=== PATIENT | female | born 1960 | race Caucasian/White ===

== ENCOUNTER 2024-12-15 09:03 | Emergency (ER) | payer OTHER, SELFPAY ==
[2024-12-15 09:10] VITALS: BP 192/88; PULSE 81; RESP 16; TEMP 36.6; O2SAT 99
--- OUTSIDE RECORDS SUMMARY | 2024-12-15 09:25 | XMS_ITS | Clinical Summary ---
Author Organization [facility] Address [address] [place] [address] Phone Care Team Providers Care Cotton Farmer Name Role Phone Antonette Saunders ADIA Primary Care Provider + Allergies Active Allergy Reactions Criticality Noted Date Comments Lisinopril Other (see Comments) Low 11/26/2016 Medications famotidine (PEPCID) 20 MG Tablet Take 1 Tablet by mouth 2 times daily. 60 Tablet 3 3 Active hydrOXYzine (ATARAX) 25 MG Tablet TAKE 1 TABLET BY MOUTH EVERY NIGHT NEEDED FOR ANXIETY OR SLEEP 90 Tablet 4 Active atorvastatin (LIPITOR) 20 MG TabletIndications :Atherosclerosis TAKE 1 TABLET BY MOUTH EVERY DAY 90 Tablet 4 Active cloNIDine (CATAPRES) 0.1 MG TabletIndications :Essential hypertension Take 1 Tablet by mouth 2 times daily as needed (take if blood pressure above 160/100). 30 Tablet 4 Active clopidogrel (PLAVIX) 75 MG Tablet Take 1 Tablet by mouth daily. 90 Tablet 3 4 Active losartan (COZAAR) 50 MG TabletIndications :Essential hypertension TAKE 1 TABLET BY MOUTH TWICE A DAY 180 Tablet 1 4 Active amLODIPine (NORVASC) 5 MG TabletIndications :Essential hypertension TAKE 1 TABLET BY MOUTH EVERY DAY 90 Tablet 4 Active Albuterol-Budeson nicole (Airsupra) 90-80 MCG/ACT AerosolIndication s:Asthma,Bronchos pasm take 2 Puffs by inhalation every 4 hours as needed (shortness of breath, wheezing, or cough, max 12 puffs in 24 hour period). Indications: Asthma, Spasm of Lung Air Passages 32.1 g 4 Active methocarbamol (ROBAXIN) 750 MG Tablet Take 1 Tablet by mouth 3 times daily as needed (upper back pain). 30 Tablet 1 4 Active Active Problems Problem Noted Date Diagnosed Date Anxiety 09/02/2022 Carotid stenosis, asymptomatic, bilateral 2022 Alcohol abuse 09/02/2022 Suppurative hidradenitis 09/02/2022 COPD (chronic obstructive pulmonary disease) Hypertension 09/02/2022 Cervical ca 09/02/2022 Cancer Staging:Clinical: Unsigned Prediabetes 07/24/2021 Atherosclerosis 07/24/2021 Hypertension 07/24/2021 Chronic right shoulder pain 11/22/2016 PVD (peripheral vascular disease) 05/24/2016 Pancreatitis, recurrent Eczema Resolved Problems Problem Noted Date Diagnosed Date Resolved Date Seizures 02/09/2018 Family History Medical History Relation Name Comments Ovarian Cancer Maternal Aunt Diabetes Mother Heart Disease Mother Hypertension Mother Relation Name Status Comments Maternal Aunt Mother Social History Tobacco Use Types Packs/Day Years Used Date Smoking Tobacco: Former Cigarettes 1 42.3 1 974 - 09/14/2015 Smokeless Tobacco: Never Tobacco Cessation:Counseling Given: Not Answered Alcohol Use Standard Drinks/Week Comments Yes 4 (1 standard drink = 0.6 oz pur e alcohol) PHQ-2 Answer Date Recorded Total Score - Questions 1-9 0 0 05/2021 Education Answer Date Recorded What is the highest level of school you have completed or the highest degree you have received? Some college, no degree 09/11/2022 Comments No Sex and Gender Information Value Date Recorded Sex Assigned at Not on file Legal Sex Female 8:08 PM CDT Gender Identity Not on file Sexual Orientation Not on file Last Filed Vital Signs Vital Sign Reading Time Taken Comments Blood Pressure 118/62 02/08/2024 3:17 AM CDT Pulse 94 02/08/2024 3:17 AM CDT Temperature 36.8 C (98.2 F) 02/07/2024 10:14 PM CDT Respiratory Rate 18 02/08/2024 3:17 AM CDT Oxygen Saturation 95% 02/08/2024 3:17 AM CDT Inhaled Oxygen Concentration - - Weight 59.9 kg (132 lb) 02/07/2024 10:14 PM CDT Height 162.6 cm (5' 4) 02/07/2024 10:14 PM CDT Body Mass Index 22.66 02/07/2024 10:14 PM CDT Plan of Treatment Health Maintenance Due Date Last Done Comments Hepatitis C Virus (HCV) Screening 1961 TdaP Immunization 1961 SARS-COV-2 Immunization (#1) 1966 Pneumococcal Immunization (5 0+ years) (1 of 2 - PCV) 02/14/1980 Zoster Immunization (1 of 2) 02/14/1980 Pap Smear 1982 Cervical Cancer Screening (CCS) 1991 HPV/Cotest 1991 Cologuard 2006 Colonoscopy 2006 Colorectal Cancer Screening 2006 Immunochemical Fecal Occult Blood 2006 Respiratory Syncytial Virus (RSV) Immunization (Adult) (1 - Risk 60-74 years 1-dose series) 2021 Mammogram 09/28/2022 09/28/2021, 05/17/2016 Lung Cancer Screening 09/05/2023 09/04/2022 , 09/28/2021, 11/07/2016 Influenza Immunization (#1) 2025 Hepatitis B Immunization Aged Out No longer eligible based on patient's age to complete this topic Human Papillomavirus (HPV) Immunization Aged Out No longer eligible b ased on patient's age to complete this topic Meningococcal Immunization (ACWY) Aged Out No longer eligible b ased on patient's age to complete this topic Rotavirus Immunization Aged Out No lo nger eligible based on patient's age to complete this topic Procedures Procedure Name Priority Date/Time Associated Diagnosis Comments CT CHEST W/O CONTRAST Stat with Interpretation 09/04/2022 10:03 AM CDT CLARI SCREENING BILATERAL DIGITAL W CAD W CHANDRAKANT Routine 09/28/2021 7:58 AM CDT Screening mammogram for breast cancer from Last 3 Months or Most Recently Relevant to Health Maintenance Results * CT CHEST W/O CONTRAST (09/04/2022 10:03 AM CDT) Anatomical Region Laterality Modality Chest N/A Computed Tomogra phy 09/04/2022 11:0 6 AM CDT Impressions 09/04/2022 11:09 AM CDT IMPRESSION: 1. Mild left basilar atelectasis with associated trace left effusion. 2. Significant coronary artery atherosclerosis. Narrative 09/04/2022 11:09 AM CDT EXAM DESCRIPTION: CT CHEST W/O CONTRAST REASON FOR STUDY: Chest pain and cough x2 days TECHNIQUE: CT scan of the chest performed without intravenous contrast using helical scanning technique. Reconstructed coronal and sagittal MPR images reviewed. All images stored on PACS. Automated exposure control was used as a dose optimization technique for this examination. COMPARISON: 09/02/2022 REFERENCE: Per ACR white paper recommendations, unless otherwise specified no follow-up imaging is recommended for incidental renal and adrenal lesions per consensus recommendations based on imaging criteria. Further lab evaluation could be pursued based on clinical findings. FINDINGS: The sensitivity for detection of solid visceral lesions is diminished without the use of intravenous contrast. LUNGS: Mild left basilar atelectasis with trace left effusion. The previously seen trace edema has resolved in the interim. Moderate emphysema. 8 mm ground-glass opacity within the posterior right upper lobe along the fissure is grossly stable when correlated with the lung cancer screening CT on 09/28/2021. Continued yearly lung cancer screening is recommended. MEDIASTINUM/RAINER: No identified masses or abnormal nodes. HEART: The heart is normal in size. Trace effusion. CORONARY ARTERY CALCIFICATION: Moderate to severe coronary artery calcification. VASCULATURE: Aorta is normal in caliber. AXILLA: No adenopathy. CHEST WALL: No masses. No subcutaneous air. HARDWARE/LINES/TUBES: None. UPPER ABDOMEN: Better evaluated on CT dated 09/02/2022. Peripancreatic stranding is partially imaged in keeping with pancreatitis. High density within the gallbladder likely represents vicarious excretion of contrast from the recent examination. Please refer to the prior report on 09/02/2022. MUSCULOSKELETAL: No significant abnormality. OTHER: No other significant abnormality. THIS IS AN ELECTRONICALLY VERIFIED FINAL REPORT 09/04/2022 11:06 AM - Electronically signed by Luiz Diaz M.D. AG: SUZETTE Agarwal: 09/04/2022 11:06 AM Report ID: [id number] Reading Location: [id number] Procedure Note Luiz Diaz MD - 09/04/2022 EXAM DESCRIPTION: CT CHEST W/O CONTRAST REASON FOR STUDY: Chest pain and cough x2 days TECHNIQUE: CT scan of the chest performed without intravenous contrast using helical scanning technique. Reconstructed coronal and sagittal MPR images reviewed. All images stored on PACS. Automated exposure control was used as a dose optimization technique for this examination. COMPARISON: 09/02/2022 REFERENCE: Per ACR white paper recommendations, unless otherwise specified no follow-up imaging is recommended for incidental renal and adrenal lesions per consensus recommendations based on imaging criteria. Further lab evaluation could be pursued based on clinical findings. FINDINGS: The sensitivity for detection of solid visceral lesions is diminished without the use of intravenous contrast. LUNGS: Mild left basilar atelectasis with trace left effusion. The previously seen trace edema has resolved in the interim. Moderate emphysema. 8 mm ground-glass opacity within the posterior right upper lobe along the fissure is grossly stable when correlated with the lung cancer screening CT on 09/28/2021. Continued yearly lung cancer screening is recommended. MEDIASTINUM/RAINER: No identified masses or abnormal nodes. HEART: The heart is normal in size. Trace effusion. CORONARY ARTERY CALCIFICATION: Moderate to severe coronary artery calcification. VASCULATURE: Aorta is normal in caliber. AXILLA: No adenopathy. CHEST WALL: No masses. No subcutaneous air. HARDWARE/LINES/TUBES: None. UPPER ABDOMEN: Better evaluated on CT dated 09/02/2022. Peripancreatic stranding is partially imaged in keeping with pancreatitis. High density within the gallbladder likely represents vicarious excretion of contrast from the recent examination. Please refer to the prior report on 09/02/2022. MUSCULOSKELETAL: No significant abnormality. OTHER: No other significant abnormality. THIS IS AN ELECTRONICALLY VERIFIED FINAL REPORT 09/04/2022 11:06 AM - Electronically signed by Luiz Diaz M.D. AG: SUZETTE Report ID: [id number] Reading Location: [place] [address] IMPRESSION: 1. Mild left basilar atelectasis with associated trace left effusion. 2. Significant coronary artery atherosclerosis. us Charlotte Leblanc MD IMG CT ORDERABLES Final Resul t * CLARI SCREENING BILATERAL DIGITAL W CAD W CHANDRAKANT (09/28/2021 7:58 AM CDT) Anatomical Region Laterality Modality breast Bilateral Mammography 09/28/2021 7:40 AM CDT Narrative 09/28/2021 9:38 AM CDT - CLARI SCREENING BILATERAL DIGITAL W CAD W CHANDRAKANT BILATERAL DIGITAL SCREENING MAMMOGRAM 3D/2D WITH CAD WITH MEDIOLATERAL OBLIQUE CRANIOCAUDAL: 09/28/2021 The study was acquired using digital technology and interpreted from soft copy. Current study was also evaluated with ICAD version 7.2. 2D digital mammographic views, as well as 3D digital tomosynthesis were performed in the CC and MLO projections. CLINICAL: Routine screening. Patient has no complaints. Personal history of gynecological cancer. No family history of breast cancer. COMPARISONS: Comparison is made to exam dated: 05/17/2016 [facility]. BREAST TISSUE:The tissue of both breasts is heterogeneously dense. This may lower the sensitivity of mammography. FINDINGS: No significant masses, calcifications, or other findings are seen in either breast. There has been no significant interval change. IMPRESSION: BI-RAD 1 NEGATIVE There is no mammographic evidence of malignancy. A 1 year screening mammogram is recommended. A letter will be sent to the patient with these results. The patient will be entered into a reminder system with a target due date of 1 year for her next screening exam. Electronically signed by: Florence lal/darian:09/28/2021 08:55:45 Chief Bank Examiner(s): Ciro Leigh)(M), [facility] letter sent: Normal Exam Reading location: [facility] BI-RADS: 1 Negative Procedure Note Florence Moctezuma MD - 09/28/2021 - CLARI SCREENING BILATERAL DIGITAL W CAD W CHANDRAKANT BILATERAL DIGITAL SCREENING MAMMOGRAM 3D/2D WITH CAD WITH MEDIOLATERAL OBLIQUE CRANIOCAUDAL: 09/28/2021 The study was acquired using digital technology and interpreted from soft copy. Current study was also evaluated with ICAD version 7.2. 2D digital mammographic views, as well as 3D digital tomosynthesis were performed in the CC and MLO projections. CLINICAL: Routine screening. Patient has no complaints. Personal history of gynecological cancer. No family history of breast cancer. COMPARISONS: Comparison is made to exam dated: 05/17/2016 [facility]. BREAST TISSUE:The tissue of both breasts is heterogeneously dense. This may lower the sensitivity of mammography. FINDINGS: No significant masses, calcifications, or other findings are seen in either breast. There has been no significant interval change. IMPRESSION: BI-RAD 1 NEGATIVE There is no mammographic evidence of malignancy. A 1 year screening mammogram is recommended. A letter will be sent to the patient with these results. The patient will be entered into a reminder system with a target due date of 1 year for her next screening exam. Electronically signed by: Florence lal/darian:09/28/2021 08:55:45 Chief Bank Examiner(s): Ciro Leigh)(M), [facility] letter sent: Normal Exam Reading location: [facility] BI-RADS: 1 Negative Antonette Saunders PAC IMG MAMMO ORDERABLES Fin al Result from Last 3 Months or Most Recently Relevant to Health Maintenance Insurance [facility] OAP Advance Directives * Full Code (Latest Code Status on File) Date Activated Date Inactivated Comments 09/02/2022 1:07 PM 09/06/2022 2:37 PM CPR-Full Abel atment: FULL ARREST: Attempt Resuscitation/CPR wit intubation and mechanical ventilation. PRE-ARREST: Use entire range of life support measures to stabilize the patient. Care Teams Cotton Farmer Relationship Specialty Start Date End Date Antonette Saunders, [facility] [address] [place] [address] PCP - General Physician Pattern Grader 01/22/18
--- OUTSIDE RECORDS SUMMARY | 2024-12-15 09:25 | XMS_ITS | Clinical Summary ---
Author Organization [facility] [address] Address [address] [place] [address] Care Team Providers Care Detention Worker Name Role Phone Antonette Saunders Primary Care Provider + [phone] Ryan Garrett MD Unavailable [phone] Reji Tan MD Unavailable [phone] Allergies Active Allergy Reactions Criticality Noted Date Comments Lisinopril Cough Low 11/26/2016 Medications albuterol HFA (PROVENTIL HFA,VENTOLIN HFA) 90 mcg/actuation inhaler Inhale. Active amLODIPine (NORVASC) 5 mg tablet Take 5 mg by mouth. 02/02/2016 Active losartan-hydroch lorothiazide (HYZAAR) 100-25 mg per tablet Take by mouth. 02/02/2016 Active cyclobenzaprine (FLEXERIL) 5 mg tablet Take 5 mg by mouth. 11/25/2016 Active LORazepam (ATIVAN) 1 mg tablet Take 1 tablet (1 mg total) by mouth 2 (two) times a day as needed (abd spasm) for up to 7 days 14 tablet 12/25/2022 Active aspirin 325 mg tablet Take 1 tablet (325 mg total) by mouth daily 12/25/2022 Active Active Problems Problem Noted Date Diagnosed Date Abdominal pain 12/23/2022 Left ventricular hypertrophy due to hypertensive disease 11/26/2016 Hypertension 09/25/2013 Overview (08/15/2016): HYPERTENSION NOS Pancreatitis Surgical History Surgery Date Site/Laterality Comments KNEE ARTHROSCOPY Arthroscopy knee TUBAL LIGATION Bilateral tubal ligation KNEE ARTHROSCOPY 2012 Left Arthroscopy knee Medical History Medical History Date Comments Hx Other Medical adenoidectomy Hx Other Medical cervical surger y Hx Other Medical Bilateral tubal ligation Malignant neoplasm of cervix (HCC) Cancer, cervical Hx Other Medical Headache, migra ine Hypertension Hypertension Seizure disorder (HCC) Seizure d isorder Hx Other Medical right ankle fx Pancreatitis Family History Medical History Relation Name Comments Other Father ; Coronary artery disease Mother Devi nary artery disease; Diabetes type II Mother Diabetes -T ype II; Hypertension Mother Hypertension; Relation Name Status Comments Father Mother Social History Tobacco Use Types Packs/Day Years Used Date Smoking Tobacco: Never Smokeless Tobacco: Never Tobacco Cessation:Counseling Given: Not Answered Alcohol Use Standard Drinks/Week Comments Yes 0 (1 standard drink = 0.6 oz pur e alcohol) Social Connection and Isolat ion Panel [NHANES] Answer Date Recorded In a typical week, how many times do you talk on the phone with family, friends, or neighbors? More than three times a week 12/24/2022 How often do you get togethe r with friends or relatives? More than three times a week 12/24/2022 How often do you attend chur ch or synagogue services? Never 12/24/2022 Do you belong to any clubs o r organizations such as voodoo groups, unions, fraternal or athletic groups, or school groups? No 12/24/2022 How often do you attend meet ings of the clubs or organizations you belong to? Never 12/24/2022 Are you , , di vorced, , never , or living with a partner? 12/24/2022 Overall Financial Resource Strain (CARDIA) Answe r Date Recorded How hard is it for you to pa y for the very basics like food, housing, medical care, and heating? Not very hard 12/24/2022 Hunger Vital Sign Answer Date Recorded Within the past 12 months, y ou worried that your food would run out before you got the money to buy more. Never true 12/25/19 23 Within the past 12 months, t he food you bought just didn't last and you didn't have money to get more. Never true 12/24/2022 PRAPARE - Transportation Answer Date Re corded In the past 12 months, has l ack of transportation kept you from medical appointments or from getting medications? No 12/10 In the past 12 months, has l ack of transportation kept you from meetings, work, or from getting things needed for daily living? No 12/24/2022 Housing Stability Vital Sign Answer Andrew e Recorded In the last 12 months, was t here a time when you were not able to pay the mortgage or rent on time? No 12/24/2022 In the last 12 months, how many places have you lived? 1 12/24/2022 In the last 12 months, was t here a time when you did not have a steady place to sleep or slept in a prison (including now)? No 12/24/2022 Personal Safety Answer Date Recorded Have you ever been in or are you currently in a harmful physical or emotional relationship or is someone making you feel afraid or unsafe? 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 Gender Identity Not on file Sexual Orientation Not on file Obstetrics History Last Filed Vital Signs Vital Sign Reading Time Taken Comments Blood Pressure 125/72 12/25/2022 4:42 PM CDT Pulse 120 12/25/2022 4:42 PM CDT Temperature 37.4 C (99.4 F) 12/25/2022 4:42 PM CDT Respiratory Rate 17 12/25/2022 4:42 PM CDT Oxygen Saturation 96% 12/25/2022 4:42 PM CDT Inhaled Oxygen Concentration - - Weight 64.9 kg (143 lb) 12/25/2022 1:40 PM CDT Height 162.6 cm (5' 4) 12/25/2022 1:40 PM CDT Body Mass Index 24.55 12/25/2022 1:40 PM CDT Plan of Treatment Health Maintenance Due Date Last Done Comments Breast Cancer Screening-Mammogram 1961 Cervical Cancer Screening 1961 Colon Cancer Screening-Colonoscopy 1961 Depression Screening 1961 Hepatitis C Screening 1961 DTaP/Tdap/Td Vaccine (1 - Tdap) 02/14/1972 Hepatitis B Screening 1979 Regular Well Visit/Exam 18-64 1979 Pneumococcal vaccine <65 (1 of 2 - PCV) 02/14/1980 Zoster Vaccine (1 of 2) 2011 Influenza Vaccine (#1) 2025 Medical Devices Explanted Type Area Lever Tender Device Identifier Shelf Expiration Date Model / Serial / Lot [employer] Montano Flexi-Stent 7fr 5cm Small Pigtail Flexible .035in Stent [id number] - [id number] Implanted:Qty: 1 on 12/23/2022 by Ryan Garrett MD at [facility] Explanted:Qty: 1 on 12/25/2022 by Ryan Garrett MD at [facility] N/A: Pancreas [employer] [id number] 09/10/2027 [id number] / / [id number] [employer] Jac Wallflex 10mm X 60mm Fully Covered Biliary [id number] - [id number] Implanted:Qty: 1 on 12/23/2022 by Ryan Garrett MD at [facility] Explanted:Qty: 1 on 12/25/2022 by Ryan Garrett MD at [facility] N/A: Bile Duct [employer] 11/03/2024 [id number] / / [id number] Insurance [facility] [id number] [facility] [id number] Advance Directives For more information, please contact: [phone] * Full Code (Latest Code Status on File) Date Activated Date Inactivated Comments 12/23/2022 7:45 AM 12/25/2022 11:00 PM Care Teams Detention Worker Relationship Specialty Start Date End Date Antnoette Saunders PA [address] [address] PCP - General Transitional Kindergarten Teacher 12/10/22 Ryan Garrett MD [address] [facility] [address] [place] [address] Consulting Physician Gastroenterology 12/25/22 Reji Tan MD [address] [address] Consulting Physician General Surgery 12/25/22
--- OUTSIDE RECORDS SUMMARY | 2024-12-15 09:25 | XMS_ITS | Encounter Summary ---
Author Organization [facility] Address [address] [place] [address] Phone Care Team Providers Care Parachute Cushion Installer Name Role Phone Antonette Saunders Primary Care Provider + Reason for Visit * Reason Comments Medication Refill Encounter Details Date Type Department Care Team (Late st Contact Info) Description 07/09/2023 Refill [facility] - [facility] [address] [place] [address] Antonette Saunders PAC [address] [place] [address] Medication Refill Social History Tobacco Use Types Packs/Day Years Used Date Smoking Tobacco: Former Cigarettes 1 42.3 1 974 - 09/14/2015 Smokeless Tobacco: Never Alcohol Use Standard Drinks/Week Comments Yes 4 [...] on file Sexual Orientation Not on file documented as of this encounter Miscellaneous Notes * Telephone Encounter - Muna Hernandez RN - 07/09/2023 3:38 PM GROMMET MACHINE OPERATOR Medication(s) refilled and signed per [facility] Chronic Medication Refill Standing Order for Pediatricand Adult Patients. Requested Prescriptions Pending Prescriptions Disp Refills clopidogrel (PLAVIX) 75 MG Tablet [Pharmacy Med Name: CLOPIDOGREL 75 MG TABLET] 90 Tablet 1 Sig: TAKE 1 TABLET BY MOUTH EVERY DAY Plavix Protocol Passed - 07/09/2023 3:36 PM Passed - CBC on record in past 12 months WBC Date Value Ref Range Status 11/01/2022 6.81 4.00 - 12.00 10(3)/mcL Final WBC ESTERASE Date Value Ref Range Status 09/04/2022 25 /ul (A) Negative Final RBC Date Value Ref Range Status 11/01/2022 4.48 3.80 - 5.30 10(6)/mcL Final HEMATOCRIT (HCT) Date Value Ref Range Status 11/01/2022 42.1 36.0 - 47.0 % Final HEMOGLOBIN (HGB) Date Value Ref Range Status 11/01/2022 13.3 12.0 - 15.8 g/dL Final MCV Date Value Ref Range Status 11/01/2022 94.0 82.0 - 96.0 fL Final MCH Date Value Ref Range Status 11/01/2022 29.7 26.0 - 34.0 pg Final MCHC Date Value Ref Range Status 11/01/2022 31.6 31.0 - 36.0 g/dL Final Passed - Visit with relevant provider in past 12 months or upcoming 90 days Recent Visits Date Type Provider Dept 11/01/22 Office Visit Antonette Saunders PAC [facility] 09/11/22 Office Visit Antonette Saunders PAC [facility] Showing recent visits within past 365 days and meeting all other requirements Future Appointments No visits were found meeting these conditions. Showing future appointments within next 90 days and meeting all other requirements MET MACHINE OPERATOR documented in this encounter Plan of Treatment Not on file documented as of this encounter Visit Diagnoses Not on filedocumented in this encounter Additional Health Concerns Assessment Noted Time PHQ-9 Depression Total Score: 0 01/06/20 19 8:00 AM CDT documented as of this encounter Care Teams Parachute Cushion Installer Relationship Specialty Start Date End Date Antonette Saunders, [facility] [address] [place] [address] PCP - General Physician Dietary Service Aide 01/22/18 documented as of this encounter
--- OUTSIDE RECORDS SUMMARY | 2024-12-15 09:25 | XMS_ITS | Patient Health Record ---
Author Organization [facility] Address [address] [place] [address] Care Team Providers Care Pot Holder Binder Name Role Phone MOY ROSALES, JOVANNA Unavailable Antonette Saunders PA-C Unavailable Unavailable Allergies Allergen (clinical drug ingredient) Drug/Non Drug Allergy documented on EMR Reaction Allergy Type Onset Date Status lisinopril Lisinopril cough Drug Allergy Activ e Reason For Referral No Information Medications Medication SIG (Take, Route, Frequency, Duration) Notes Start Date End Date Status Breo Ellipta 100-25 MCG/ACT 1 puff Inhal ation Once a day Unknown Famotidine 20 MG tab Orally twice day Unknown Plavix 75 MG 1 tablet Orally Once a day Unknown Atorvastatin Calcium 20 MG 1 tablet Oral ly Once a day Unknown Proventil HFA 108 (90 Base) MCG/ACT 1 puff as needed Inhalation every 6 hrs Unknown Robaxin-750 Unknown Losartan Potassium 50 MG 1 tablet Orally Once a day Unknown hydrOXYzine HCl 25 MG 1 tablet at bedtim e as needed Orally Once a day Unknown Plan Of Treatment Pending Test Test Name Order Date Endoscopic Retrograde Cholangiopancreato graphy (ERCP) 11/18/2022 Insurance Providers Payer Name Payer Address Payer Phone Subscriber Number Group Number Insured Name Patient Relationship to Insured Coverage Start Date Coverage End Date [employer] [facility] Benefits [address] [place], [place] [id number] Eleni Vasquez Self - patient is the insured Medical (General) History Medical History History ICD Code cervical cancer/hysterectomy pancreatitis hypertension Surgical History Surgery Date(Month/Year) cone biopsy/hysterectotmy tubal liagtion cardiac stents EUS 12/23/22 [place] 12/1422 ERCP Tami
--- NOTE | 2024-12-15 09:28 | ED.SKABFB ---
HPI - Skin/Abscess/Foreign Bdy General Chief complaint: Skin/Abscess/Foreign Body Stated complaint: Rash Time Seen by Provider: 12/15/24 09:15 Source: patient and RN notes reviewed Mode of arrival: ambulatory Limitations: no limitations History of Present Illness HPI narrative: Patient presents today complaining of severely pruritic rash since yesterday. States she was out in the [place] 2 days ago, but no one else that without with her has a similar rash. Rash has spread to her entire body including her face. Denies facial swelling, shortness of breath, or additional symptoms. She has not tried any [id number]-[id number] interventions prior to arrival. No new exposures, but patient does have a dog. Related Data Home Medications ?Medication ?Instructions ?Recorded ?Confirmed ?Last Taken ?Type amlodipine PO DAILY 12/15/24 Unknown History clopidogrel 75 mg tablet mg 12/15/24 Unknown History Allergies Allergy/AdvReac Type Severity Reaction Status Date / Time lisinopril AdvReac Mild Cough Verified 12/15/24 09:22 [facility] Comments At time of signature, I have reviewed and agree with nursing past medical, surgical, social and family history unless otherwise noted. Please see nursing chart for further information. There is no relevant family history pertinent to the presenting complaint Exam Narrative: GENERAL: Well-appearing, well-nourished, and in no acute distress. HEAD: Normocephalic, atraumatic. EYES: EOMI. No redness or drainage. Conjunctivae normal. ENT: Mucous membranes pink and moist. NECK: Normal AROM. CHEST: No respiratory distress. EXTREMITIES: Normal range of motion. No edema. SKIN: Warm, dry. Capillary refill normal. Normal skin turgor. Scattered erythematous tiny vesicular lesions surrounded by mild erythema and localized edema, consistent with an insect bite. These lesions are on all extremities, chest, abdomen, back, neck, and chin. No induration, fluctuance, or other signs of bacterial infection. NEURO: No focal deficits. Alert and oriented x3. Gait steady. PSYCH: Normal affect. No signs of depression or anxiety. Course Course Level of Care: Express Care Visit Vital Signs Vital signs: Vital Signs Temperature 97.8 F 12/15/24 09:10 Pulse Rate 81 12/15/24 09:10 Respiratory Rate 16 12/15/24 09:10 Blood Pressure 192/88 H 12/15/24 09:10 Pulse Oximetry 99 12/15/24 09:10 Oxygen Delivery Room Air 12/15/24 09:10 Temperature 97.8 F 12/15/24 09:10 Pulse Rate 81 12/15/24 09:10 Respiratory Rate 16 12/15/24 09:10 Blood Pressure 192/88 H 12/15/24 09:10 Pulse Oximetry 99 12/15/24 09:10 Oxygen Delivery Room Air 12/15/24 09:10 Reviewed MDM - Skin/Abscess/Foreign Bdy MDM Narrative Medical decision making narrative: 64-year-old female patient presents today complaining of severely pruritic rash over entire body since yesterday. Day before onset, patient was out in the wounds. No new exposures. No OTC treatment prior to arrival. Upon exam, lesions show tiny vesicles surrounded by erythema, consistent with insect bites. She will be treated with a course of prednisone. Instructed to start an antihistamine for itching as well. Blood pressure elevated, but patient takes amlodipine, but has not taken it yet today. Remainder of vital signs stable. Patient agrees with plan. Anticipatory guidance given. Differential Diagnosis Differential diagnosis: Likely abscess of skin or subcutaneous tissue, viral exanthem, urticaria, cellulitis, eczema, insect bites, impetigo and contact dermatitis Critical Care Time Critical Care Time Critical Care Time: No Discharge Plan Discharge Clinical Impression: Insect bites Patient Disposition: Home Condition: Stable Instructions: Insect Bite or Sting (ED) Additional Instructions: Please take the prednisone as directed. Start a daily antihistamine such as Zyrtec, Claritin, or Ambika for itching. You may also use some calamine lotion or topical Benadryl for itching too. Follow-up with your PCP if symptoms are not improving. Patient Language: Hungarian Prescriptions: New prednisone 20 mg tablet 40 mg PO DAILY 5 Days Qty: 10 0RF No Action clopidogrel 75 mg tablet amlodipine PO DAILY Follow-up/Referrals: Chip,ALIA Lee [Primary Care Provider] - Time of Disposition: 09:34
== END 2024-12-15 09:42 | disposition home or self-care (01) ==
PROVIDERS: Emergency Provider Nurse Practitioner; PCP Physician Assistant
DX: S80.862A Insect bite (nonvenomous), left lower leg, initial encounter (principal); S80.861A Insect bite (nonvenomous), right lower leg, initial encounter; S40.862A Insect bite (nonvenomous) of left upper arm, initial encounter; S40.861A Insect bite (nonvenomous) of right upper arm, initial encounter; S20.469A Insect bite (nonvenomous) of unspecified back wall of thorax, initial encounter; S30.861A Insect bite (nonvenomous) of abdominal wall, initial encounter; S10.96XA Insect bite of unspecified part of neck, initial encounter; S00.86XA Insect bite (nonvenomous) of other part of head, initial encounter; W57.XXXA Bitten or stung by nonvenomous insect and other nonvenomous arthropods, initial encounter; I10 Essential (primary) hypertension; Z95.820 Peripheral vascular angioplasty status with implants and grafts
CPT/HCPCS: 99203; G0463

== ENCOUNTER 2025-04-28 16:48 | Emergency (ER) | payer OTHER, SELFPAY ==
--- NOTE | ~2025-04-28 | XR_ITS ---
EXAMINATION: XR chest 2V, 04/28/2025 17:04 [facility] HISTORY: cough, COMPARISON: No comparisons available. Technique: 2 views obtained. Findings: The lungs are clear, no effusion. No pneumothorax. Heart is normal size. Mediastinal and hilar contours are within normal limits. Bony thorax no acute abnormality. Impression: No acute cardiopulmonary abnormality. Reviewed, dictated and finalized at location P. [facility] Impression: No acute cardiopulmonary abnormality.
--- OUTSIDE RECORDS SUMMARY | 2025-04-28 16:53 | XMS_ITS | Encounter Summary ---
Author Organization [facility] Address [address] [place] [address] Phone Care Team Providers Care Wood Molder Name Role Phone Antonette Saunders Primary Care Provider + Reason for Visit * Reason Comments Medication Refill Encounter Details Date Type Department Care Team (Late st Contact Info) Description 07/09/2023 Refill [facility] - Family Medicine [facility] [address] [place] [address] Antonette Saunders [facility] [address] [place] [address] Medication Refill Social History Tobacco Use Types Packs/Day Years Used Date Smoking Tobacco: Former Cigarettes 1 42.3 1 974 - 09/14/2015 Smokeless Tobacco: Never Alcohol Use Standard Drinks/Week Comments Yes 4 (1 standard drink = 0.6 oz pur e alcohol) PHQ-2 Answer Date Recorded Total Score - Questions 1-9 0 03/0 05/2021 Education Answer Date Recorded What is [...] Muna Hernandez RN - 07/09/2023 3:38 PM CASE CONSULTANT Medication(s) refilled and signed per [facility] Chronic Medication Refill Standing Order for Pediatricand [...] Dept 11/01/22 Office Visit Antonette Saunders PAC [facility] [place] 09/11/22 Office Visit Antonette Saunders PAC [facility] Showing recent visits within past 365 days and meeting all other requirements Future Appointments No visits were found meeting these conditions. Showing future appointments within next 90 days and meeting all other requirements CONSULTANT documented in this encounter Plan of Treatment Not on file documented as of this encounter Visit Diagnoses Not on filedocumented in this encounter Additional Health Concerns Assessment Noted Time PHQ-9 Depression Total Score: 0 01/06/20 19 8:00 AM CDT documented as of this encounter Care Teams Wood Molder Relationship Specialty Start Date End Date Antonette Saunders, PAC [address] [place] [address] PCP - General Physician Heat Treater 01/22/18 documented as of this encounter
--- OUTSIDE RECORDS SUMMARY | 2025-04-28 16:53 | XMS_ITS | Clinical Summary ---
Author Organization [facility] Address [address] [place] [address] Phone Care Team Providers Care Ben Day Artist Name Role Phone Antonette Saunders ADIA Primary [...] 1961 TdaP Immunization 1961 SARS-COV-2 Immunization (#1) 1961 Pneumococcal Immunization (5 0+ years) (1 of 2 - PCV) 02/14/1980 Zoster Immunization (1 of 2) 02/14/1980 Pap Smear 1982 Cervical Cancer Screening (CCS) 1991 HPV/Cotest 1991 Cologuard 2006 Colonoscopy 2006 Colorectal Cancer Screening 2006 Immunochemical Fecal Occult Blood 2006 Respiratory Syncytial Virus (RSV) Immunization (Adult) (1 - Risk 50-74 years 1-dose series) 2011 Mammogram 09/28/2022 09/28/2021, 05/17/2016 Influenza Immunization (#1) 2025 Lung Cancer Screening Discontinued 09/04/2022 , 09/28/2021, 11/07/2016 Hepatitis B Immunization Aged Out No longer eligible based on patient's age to complete this topic Human Papillomavirus (HPV) Immunization (No Doses Required) Completed Meningococcal Immunization (ACWY) Aged Out No longer eligible based on [...] Luiz Diaz M.D. AG: [employer] Report ID: [id number] Reading Location: [id number] Procedure Note Luiz Diaz MD - 09/04/2022 [...] Luiz Diaz M.D. AG: [employer] Report ID: [id number] Reading Location: [place] [address] IMPRESSION: 1. Mild left basilar atelectasis with [...] Comparison is made to exam dated: 05/17/2016 [facility]. BREAST TISSUE:The tissue of both breasts is [...] exam. Electronically signed by: Florence lal/darian:09/28/2021 08:55:45 Manager Of Manufacturing(s): Toney Leigh(Tanja)(M), [facility] letter sent: Normal Exam Reading location: [facility] BI-RADS: 1 Negative Procedure Note Florence Moctezuma [...] Comparison is made to exam dated: 05/17/2016 [facility]. BREAST TISSUE:The tissue of both breasts is [...] her next screening exam. Electronically signed by: Floernce Moctezuma M.D. /penrad:09/28/2021 08:55:45 Manager Of Manufacturing(s): Ciro Leigh)(M), [facility] letter sent: Normal Exam Reading location: [facility] BI-RADS: 1 Negative Antonette Saunders PAC IMG MAMMO ORDERABLES Fin al Result from Last 3 Months or Most Recently Relevant to Health Maintenance Insurance [employer] Advance Directives * Full Code (Latest Code Status on File) Date Activated Date Inactivated Comments 09/02/2022 1:07 PM 09/06/2022 2:37 PM CPR-Full Abel atment: FULL ARREST: Attempt Resuscitation/CPR wit intubation and mechanical ventilation. PRE-ARREST: Use entire range of life support measures to stabilize the patient. Care Teams Ben Day Artist Relationship Specialty Start Date End Date Antonette Saunders, PAC [address] [place] [address] PCP - General Physician Farm Equipment Maintenance Supervisor 01/22/18
--- OUTSIDE RECORDS SUMMARY | 2025-04-28 16:53 | XMS_ITS | Clinical Summary ---
Author Organization [facility] [place] [address] Address [address] [place] [address] Care Team Providers Care Chief Quality Officer Name Role Phone Antonette Saunders Primary Care Provider + [phone] Ryan Garrett MD Unavailable [phone] Reji Tan MD Unavailable [phone] Allergies Active Allergy Reactions Criticality Noted [...] oz pur e alcohol) Social Connection and Isolation Panel Answer Date Recorded In a typical week, how many times do you talk on the phone with family, friends, or neighbors? More than three times a week 12/24/2022 How often do you get togethe r with friends or relatives? More than three times a week 12/24/2022 How often do you attend chur ch or advent services? Never 12/24/2022 Do you belong to any clubs o r organizations such as shinto groups, unions, fraternal or athletic groups, or [...] place to sleep or slept in a intermediate (including now)? No 12/24/2022 Personal Safety Answer Date Recorded Have you ever been in or are you currently in a harmful physical or emotional relationship or is someone making you feel afraid or unsafe? 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 Gender Identity Not on file Sexual Orientation [...] (#1) 2025 Medical Devices Explanted Type Area Relationship Executive Device Identifier Shelf Expiration Date Model / Serial / Lot [employer] [place] Flexi-Stent 7fr 5cm Small Pigtail Flexible .035in Stent [id number] - [id number] Implanted:Qty: 1 on 12/23/2022 by Ryan Garrett MD at [facility] Explanted:Qty: 1 on 12/25/2022 by Ryan Garrett MD at [facility] N/A: Pancreas [employer] [id number] 09/10/2027 6572 / / [id number] [employer] Jac Wallflex 10mm X 60mm Fully Covered Biliary [id number] - [id number] Implanted:Qty: 1 on 12/23/2022 by Ryan Garrett MD at [facility] Explanted:Qty: 1 on 12/25/2022 by Ryan Garrett MD at [facility] N/A: Bile Duct [employer] Jac 11/03/2024 [id number] / / [id number] Insurance [employer] [facility] [id number] [facility] [id number] Advance Directives For more information, please contact: [phone] * Full Code (Latest Code Status on File) Date Activated Date Inactivated Comments 12/23/2022 7:45 AM 12/25/2022 11:00 PM Care Teams Chief Quality Officer Relationship Specialty Start Date End Date Antonette Saunders PA [address] [address] PCP - General Analytics Lead 12/10/22 Ryan Garrett MD [address] [facility] [address] [place] [address] Consulting Physician Gastroenterology 12/25/22 Reji Tan MD [address] [place] [address] Consulting Physician General Surgery 12/25/22
--- OUTSIDE RECORDS SUMMARY | 2025-04-28 16:54 | XMS_ITS | Patient Health Record ---
Author Organization [facility] Address [address] [place] [address] Care Team Providers Care Clinical Academic Allergist Name Role Phone MOY ROSALES, JOVANNA Unavailable [...] Start Date Coverage End Date [facility] Benefits [address] [place], [place] [id number] Eleni Vasquez Self - patient is the insured Medical (General) History Medical History History ICD Code cervical cancer/hysterectomy pancreatitis hypertension Surgical History Surgery Date(Month/Year) cone biopsy/hysterectotmy tubal liagtion cardiac stents EUS 12/23/22 [place] 12/1422 ERCP Tami
[2025-04-28 17:03] VITALS: BP 132/96; PULSE 103; RESP 20; TEMP 37.1; O2SAT 96
[2025-04-28 17:21] LABS: EDCOVIDSCREEN Negative (Negative)
[2025-04-28 17:22] LABS: EDINFLUASCREEN Negative (Negative); EDINFLUBSCREEN Negative (Negative)
--- NOTE | 2025-04-28 18:09 | ED.URI ---
HPI - URI/Sore Throat General Chief Complaint: Upper Respiratory Infection Stated Complaint: URI symptoms Time Seen by Provider: 04/28/25 17:50 Source: patient and RN notes reviewed Mode of arrival: ambulatory Limitations: no limitations History of Present Illness HPI Narrative: 65-year-old female presents Express Care complaining of upper respiratory symptoms for 5 days. Patient reports cough, congestion, chest congestion, wheezing, diarrhea. Patient denies any other symptoms, she denies any nausea, vomiting, chest pain, difficulty breathing, fevers, body aches, chills, or others other symptoms. Patient says she has had a poor appetite has not eaten much reports she still drinking fluids. Patient has a history of COPD. Patient says her cough is more productive than normal, she reports her sputum is thicker and more purulent than normal. Related Data Home Medications ?Medication ?Instructions ?Recorded ?Confirmed ?Last Taken ?Type amlodipine PO DAILY 12/15/24 Unknown History clopidogrel 75 mg tablet mg 12/15/24 Unknown History Allergies Allergy/AdvReac Type Severity Reaction Status Date / Time lisinopril AdvReac Mild Cough Verified 04/28/25 16:51 Review of Systems Review of Systems: CONSTITUTIONAL: Denies fever, chills, or sweats. EYES: Denies visual changes, redness, or discharge. ENT: Denies rhinorrhea, sore throat, or otalgia. Positive for congestion CARDIOVASCULAR: Denies chest pain, palpitations, or edema. RESPIRATORY: Positive for cough and wheezing. Negative for dyspnea. GASTROINTESTINAL: Denies abdominal pain, nausea, vomiting. Positive for diarrhea GENITOURINARY: Denies dysuria or hematuria. SKIN: Denies rash or itching. MUSCULOSKELETAL: Denies back pain, joint pain, or myalgia. NEUROLOGIC: Denies headache, numbness, or weakness. PSYCHIATRIC: Denies anxiety or depression. All other systems reviewed are negative, except as documented in HPI. PMFSH Comments At the time of my signature, I reviewed and agree with the nursing past medical, surgical, social, and family history. There is no relevant family history pertinent to the patient complaint. Exam Narrative: GENERAL: This is a well-nourished, well-developed adult, in no apparent distress. They are non ill-appearing, nontoxic appearing. HEAD: normocephalic, atraumatic. EYES: Sclera clear/white. Conjunctiva normal. Vision is grossly intact. Extraocular movements intact EARS: External ears normal, auditory canals clear and without drainage, TMs normal without perforation. Hearing grossly intact. NOSE: External nose normal with no obvious nasal discharge, nasal turbinates erythematous. no rhinorrhea. THROAT: Mucous membranes moist, posterior pharynx erythematous. PND present. Uvula midline. NECK: Neck supple, non-tender without lymphadenopathy, masses or thyromegaly. CARDIOVASCULAR: Regular rate and rhythm without murmurs, gallops, or rubs. RESPIRATORY: Expiratory wheezes heard throughout.. Breath sounds equal bilaterally. No rales, or rhonchi. GASTROINTESTINAL: Abdomen soft, non-tender, nondistended. SKIN: warm, Dry, intact with no suspicious lesions or rash, good texture and turgor. NEURO: awake, alert, and oriented to person, place and time. There were no obvious focal neurologic abnormalities. EXTREMITIES: No joint tenderness, effusion, or edema noted. BACK: Nontender without deformity. Course Course Level of Care: Express Care Visit Vital Signs Vital signs: Vital Signs Temperature 98.7 F 04/28/25 17:03 Pulse Rate 103 H 04/28/25 17:03 Respiratory Rate 20 04/28/25 17:03 Blood Pressure 132/96 H 04/28/25 17:03 Pulse Oximetry 96 04/28/25 17:03 Oxygen Delivery Room Air 04/28/25 17:03 Temperature 98.7 F 04/28/25 17:03 Pulse Rate 103 H 04/28/25 17:03 Respiratory Rate 20 04/28/25 17:03 Blood Pressure 132/96 H 04/28/25 17:03 Pulse Oximetry 96 04/28/25 17:03 Oxygen Delivery Room Air 04/28/25 17:03 [facility] Narrative Medical decision making narrative: Rapid COVID and flu were negative. Chest x-ray is negative for acute cardiopulmonary findings. Patient has the cardinal signs of COPD exacerbation. Will treat with doxycycline and prednisone. Discussed patient drink plenty of fluids, eat as tolerated, discussed supportive care. Patient has moist mucous membranes, tachycardia, patient may be slightly be dehydrated the patient says she still urinating and drinking fluids. Advised patient she does not urinate by tomorrow morning are unable to keep fluids down, uncontrollable diarrhea, worsening breathing problems, chest pains, fevers, any concern at she is dehydrated or worsening symptoms to go the ER immediately tomorrow. Discussed physical exam findings. Advised supportive measures and signs/symptoms to go to the ER. Pt is appropriate for outpt treatment and f/u. Differential Diagnosis Differential Diagnosis: Differential diagnostic considerations for upper respiratory infection include upper respiratory infection, croup, otitis media, sinusitis, viral infection, bronchitis, influenza, pharyngitis, strep, uvulitis, pneumonia, COPD exacerbation, diarrhea Lab Data [facility] Lab Attestation statement: I personally reviewed the patient's lab results. Labs: Lab Results 04/28/25 Range/Units 17:00 POC Influenza A Ag Negative (Negative) POC Influenza B Ag Negative (Negative) POC SARS CoV-2 Ag Negative (Negative) Imaging Data Radiologist's impression: ITS Impressions Chest X-Ray 04/28/25 17:24 Impression: No acute cardiopulmonary abnormality. Critical Care Time Critical Care Time Critical Care Time: No Discharge Plan Discharge Clinical Impression: COPD exacerbation Patient Disposition: Home Condition: Stable Instructions: Antibiotic Form, COPD (Chronic Obstructive Pulmonary Disease) (ED) Additional Instructions: YOUR RAPID COVID AND FLU WERE NEGATIVE TODAY. HER CHEST X-RAY DOES NOT SHOW ANY ACUTE CARDIOPULMONARY FINDINGS Appears you have a COPD exacerbation. Please take the prednisone as directed. Take the antibiotics as directed finish the course completely even if you start to feel better. Rest and drink plenty of fluids. Follow-up with your PCP in 2-3 days. Tylenol and Motrin as needed for pain or fevers. Follow instructions on the bottle. Use the albuterol inhaler as needed for shortness of breath or wheezing. Please go to the ER if he develops worsening symptoms, difficulty breathing, chest pains, no urine output for 12 hours, concerns of dehydration, vomiting, worsening diarrhea, or any serious concerns. Patient Language: Sami Prescriptions: New prednisone 20 mg tablet 40 mg PO DAILY 5 Days Qty: 10 0RF doxycycline monohydrate 100 mg capsule 100 mg PO BID 5 Days Qty: 10 0RF albuterol sulfate [Ventolin HFA] 90 mcg/actuation HFA aerosol inhaler 2 puff inhalation QID PRN (Reason: shortness of breath or wheezing) Qty: 8.5 0RF No Action clopidogrel 75 mg tablet amlodipine PO DAILY Follow-up/Referrals: Chip,ALIA Lee [Primary Care Provider, Unknown] Time of Disposition: 18:03
== END 2025-04-28 18:11 | disposition home or self-care (01) ==
PROVIDERS: PCP Physician Assistant
DX: J44.1 Chronic obstructive pulmonary disease with (acute) exacerbation (principal); Z20.822 Contact with and (suspected) exposure to COVID-19
CPT/HCPCS: 71046; 87426; 87804; 99213; G0463